=== PATIENT | male | born 1955 ===

== ENCOUNTER 2018-01-30 17:21 | Emergency (ER) | payer OTHER ==
[2018-01-30] MEDS ORDERED: Naloxone 0.4 mg/ml Inj (Adult) IVP ONE (18:01)
[2018-01-30] MEDS ORDERED: Naloxone 0.4 mg/ml Inj (Adult) IM STA (18:09)
[2018-01-30] MEDS ORDERED: Naloxone 0.4 mg/ml Inj (Adult) ONE (18:19)
--- NOTE | 2018-01-30 18:27 | CT ---
PROCEDURE: CT HEAD WITHOUT CONTRAST. HISTORY: drowsy COMPARISON: 09/17/2016 TECHNIQUE: Axial computed tomography images were obtained through the head/brain without intravenous contrast. Radiation dose: Total exam DLP = 985 mGy-cm. This CT exam was performed using one or more of the following dose reduction techniques: Automated exposure control, adjustment of the mA and/or kV according to patient size, and/or use of iterative reconstruction technique. FINDINGS: HEMORRHAGE: No intracranial hemorrhage. BRAIN: No mass effect or edema. No atrophy or chronic microvascular ischemic changes. VENTRICLES: Unremarkable. No hydrocephalus. CALVARIUM: Unremarkable. PARANASAL SINUSES: Unremarkable as visualized. No significant inflammatory changes. MASTOID AIR CELLS: Unremarkable as visualized. No inflammatory changes. OTHER FINDINGS: None. IMPRESSION: No acute findings
[2018-01-30 19:12] LABS: ACETAMINOPHEN < 10.0 ug/ml (10.0-30.0); SALICYLATE < 1.0 mg/dl
--- NOTE | 2018-01-30 19:12 | ED PDOC ---
HPI: Psych/Substance Abuse Time Seen by Provider: 01/30/18 17:38 Chief Complaint (Nursing): Substance Abuse Chief Complaint (Provider): substance abuse ED Caveat: Intoxicated History Per: Patient History/Exam Limitations: intoxication Onset/Duration Of Symptoms: Hrs (today) Current Symptoms Are (Timing): Still Present Suicide/Self Injury Attempted (Context): None Additional Complaint(s): Ethan Seals is a 62 year old male, with a past history of heroin abuse, who was brought to the emergency department via EMS for ETOH abuse onset today. Per EMS, patient was found outside drowsy and falling asleep. Upon arrival patient is somnolent. Limited history due to patient intoxication. PMD: None provided. Past Medical History Reviewed: Historical Data, Nursing Documentation, Vital Signs Vital Signs: Last Vital Signs Temp 101.1 F H 01/30/18 17:25 Pulse 97 H 01/30/18 17:25 Resp 12 01/30/18 17:25 BP 144/67 01/30/18 17:25 Pulse Ox 98 01/30/18 17:25 - Medical History PMH: No Chronic Diseases Denies: Chronic Kidney Disease - Surgical History Surgical History: No Surg Hx - Family History Family History: States: Unknown Family Hx - Social History Alcohol: > 2 Drinks/Day Drugs: Other (heroin) - Immunization History Hx Tetanus Toxoid Vaccination: No Hx Influenza Vaccination: No Hx Pneumococcal Vaccination: No - Home Medications Home Medications: Ambulatory Orders Medication Instructions Recorded MetFORMIN ER [Glucophage XR] 500 mg PO DAILY 09/05/16 Naloxone HCl [Narcan] 4 mg NS ONCE PRN #1 spray 01/31/18 - Allergies Allergies/Adverse Reactions: Allergies Allergy/AdvReac Type Severity Reaction Status Date / Time No Known Allergies Allergy Verified 01/30/18 17:25 Review of Systems Review Of Systems: ROS cannot be obtained secondary to pt's inabilty to answer questions. Constitutional: Positive for: Other (ETOH abuse) Physical Exam - Reviewed Nursing Documentation Reviewed: Yes Vital Signs Reviewed: Yes - Physical Exam Appears: Positive for: Non-toxic Head Exam: Positive for: ATRAUMATIC, NORMOCEPHALIC Skin: Positive for: Normal Color, Warm, Dry Eye Exam: Positive for: Normal appearance, EOMI, PERRL Neck: Positive for: Painless ROM Cardiovascular/Chest: Positive for: Regular Rate, Rhythm. Negative for: Murmur Respiratory: Positive for: Normal Breath Sounds. Negative for: Respiratory Distress Gastrointestinal/Abdominal: Positive for: Normal Exam, Soft. Negative for: Tenderness Extremity: Positive for: Normal ROM (upper and lower extremities). Negative for : Deformity, Swelling Neurologic/Psych: Positive for: Alert, Oriented (x2) - Laboratory Results Result Diagrams: 01/30/18 18:58 01/30/18 18:58 - ECG O2 Sat by Pulse Oximetry: 98 (RA) Pulse Ox Interpretation: Normal Medical Decision Making Medical Decision Making: Time: 17:38 Initial Impression: ETOH abuse Initial Plan: --Head w/o contrast [CT] --Acetaminophen --Alcohol serum --BMP --Drug screen, urine --Salicylate --CBC w/ differential --Narcan 1 mg IVP --Reevaluation 18:[address] FINDINGS: HEMORRHAGE: No intracranial hemorrhage. BRAIN: No mass effect or edema. No atrophy or chronic microvascular ischemic changes. VENTRICLES: Unremarkable. No hydrocephalus. CALVARIUM: Unremarkable. PARANASAL SINUSES: Unremarkable as visualized. No significant inflammatory changes. MASTOID AIR CELLS: Unremarkable as visualized. No inflammatory changes. OTHER FINDINGS: None. IMPRESSION: No acute findings 19:00 -Patient will be endorsed to Dr. Roberts, pending sobriety. ----- Scribe Attestation: Documented by Carmine Pacheco, acting as a scribe for Kennedy Mccann MD. Provider Scribe Attestation: All medical record entries made by the Scribe were at my direction and personally dictated by me. I have reviewed the chart and agree that the record accurately reflects my personal performance of the history, physical exam, medical decision making, and the department course for this patient. I have also personally directed, reviewed, and agree with the discharge instructions and disposition. Disposition - Clinical Impression Clinical Impression: Opioid abuse - Patient ED Disposition Is Patient to be Admitted: Transfer of Care Counseled Patient/Family Regarding: Studies Performed, Diagnosis, Need For Followup - Disposition Disposition: Transfer of Care Disposition Time: 19:00 Condition: STABLE Prescriptions: Naloxone HCl [Narcan] 4 mg NS ONCE PRN #1 spray PRN Reason: opiate overdose Instructions: Opioid Use Disorder Forms: [facility] (Nepali) Patient Signed Over To: Reza Roberts Handoff Comments: pending sobriety - POA Present On Arrival: None
[2018-01-30 19:13] LABS: BLOOD UREA NITROGEN 12 mg/dl (9-20); CALCIUM 7.8 mg/dL (8.4-10.2); GFR AFRICAN-AMERICAN > 60; GFR NON-AFRICAN AMERICAN > 60
[2018-01-30 19:16] LABS: BASO % 0.1 % (0.0-2.0); EOS # 0.1 K/uL (0.0-0.7); HEMOGLOBIN 13.5 g/dL (12.0-18.0); LYMPH # 0.3 K/uL (1.0-4.3); LYMPH % 5.3 % (20.0-40.0); MEAN CELL VOLUME 98.8 fl (80.0-94.0); MEAN CORPUSCULAR HEMOGLOBIN 33.3 pg (27.0-31.0); MEAN CORPUSCULAR HGB CONC 33.7 g/dL (33.0-37.0); MEAN PLATELET VOLUME 8.8 fl (7.2-11.7); MONO # 0.1 K/uL (0.0-0.8); MONO % 1.3 % (0.0-10.0); NEUT # 5.2 K/uL (1.8-7.0); NEUT % 92.3 % (50.0-75.0); NRBC % 0.1 % (0.0-0.0); PLATELET COUNT 86 K/uL (130-400); RBC 4.06 Mil/uL (4.40-5.90); RED CELL DISTRIBUTION WIDTH 15.6 % (11.5-14.5); WHITE BLOOD COUNT 5.7 K/uL (4.8-10.8)
--- NOTE | 2018-01-30 19:29 | ED PDOC ---
- Laboratory Results Result Diagrams: 01/30/18 18:58 01/30/18 18:58 - ECG O2 Sat by Pulse Oximetry: 98 (RA) Medical Decision Making Medical Decision Makin:00 -Patient was endorsed to me by Dr. Mccann pending sobriety. At 1AM pt is AAO x3 and has steady gait with fluent speech Patient is stable for discharge Dx Heroin/Opiate Abuse Stable Disposition - Clinical Impression Clinical Impression: Opioid abuse - POA Present On Arrival: None - Disposition Disposition: Routine/Home Disposition Time: 01:00 Condition: STABLE Prescriptions: Naloxone HCl [Narcan] 4 mg NS ONCE PRN #1 spray PRN Reason: opiate overdose Instructions: Opioid Use Disorder Forms: [facility] (Portuguese)
[2018-01-30 21:56] LABS: BANDS 2 % (0-2); EOSINOPHIL 1 % (0-7); LYMPHOCYTE 9 % (20-50); MONOCYTE 5 % (0-10); NEUTROPHIL 83 % (42-75); TOTAL CELLS COUNTED 100
[2018-01-30 21:57] LABS: PLATELET ESTIMATE SLIGHTLY DECREASED (NORMAL)
[2018-01-30 21:58] LABS: ANISOCYTOSIS SLIGHT; LARGE PLATELETS PRESENT; TOXIC GRANULATION PRESENT
[2018-01-31 01:37] VITALS: RESP 18
[2018-01-31 01:40] VITALS: BP 122/63; PULSE 90; TEMP 98.5
[2018-01-31 01:59] VITALS: O2SAT 98
== END 2018-01-31 01:20 | disposition home or self-care (01) ==
LOC: H.ER 17:21
DX: F11.10 Opioid abuse, uncomplicated (principal); F10.10 Alcohol abuse, uncomplicated; Z79.84 Long term (current) use of oral hypoglycemic drugs